=== PATIENT | female | born 1940 | race Caucasian/White ===

== ENCOUNTER → 2016-07-14 | Outpatient (CLI) | payer OTHER | LOC: BMCIMAGING 14:01 | PROVIDERS: ATTEND Internal Medicine | DX: M25.532 Pain in left wrist (principal) ==

== ENCOUNTER → 2016-08-08 | Outpatient (CLI) | payer OTHER | LOC: BMCIMAGING 10:44 | PROVIDERS: ATTEND Physician Assistant | DX: M25.532 Pain in left wrist (principal) ==

== ENCOUNTER → 2016-09-05 | Outpatient (CLI) | payer OTHER | LOC: FIMAGING 10:53 | DX: Z12.31 Encounter for screening mammogram for malignant neoplasm of breast (principal) | CPT/HCPCS: G0202 ==

== ENCOUNTER → 2016-09-28 | Outpatient (CLI) | payer OTHER | LOC: FIMAGING 09:01 | PROVIDERS: ATTEND Internal Medicine | DX: Z13.820 Encounter for screening for osteoporosis (principal) ==

== ENCOUNTER 2016-10-10 09:50 | Emergency (ER) | payer OTHER ==
--- NOTE | 2016-10-10 11:12 | EDPHY ---
H & P Time Seen by Provider: 10/10/16 10:15 HPI/ROS: CHIEF COMPLAINT: Right leg pain HISTORY OF PRESENT ILLNESS: 75-year-old woman is on hormone replacement but is worried about blood clot. She developed pain in her right leg below her knee on the lateral side over the last 24 hours. It is not associated with chest pain or shortness of breath. A little bit worse with palpation. Symptoms mild. No associated weakness or numbness in legs or known direct trauma. REVIEW OF SYSTEMS: Eye: no change in vision ENT: no sore throat Cardiac: no chest pain or syncope Pulmonary: no cough or SOB Abdomen: No abdominal pain. Musculoskeletal: As in HPI Skin: no rash or skin changes Neuro: no headache Constitutional: no fever : no urinary symptoms A comprehensive 10 point review of systems is otherwise negative aside from elements mentioned in the history of present illness. PAST MEDICAL HISTORY: Hypertension Social history: Nonsmoker, here with daughter General Appearance: Alert and conversant, cooperative. Eyes: No scleral icterus. ENT, Mouth: Normal mucous membranes. Respiratory: Normal respiratory effort, breath sounds equal, lungs are clear to auscultation. Cardiovascular: Regular rate and rhythm. Gastrointestinal: Abdomen is soft and non tender. Neurological: Alert and oriented x3. Normally conversant. Face symmetric, normal movement and sensation in all extremities. Skin: Warm and dry, no rashes. Musculoskeletal: Very mild tenderness on the proximal lateral surface of the lower leg. Compartments are soft. Knee joint is normal. No hip pain with axial loading or rotation. Normal right foot motor sensory and dorsalis pedis pulse. Normal range of motion of the knee. Psychiatric: Mildly anxious otherwise negative Emergency Department course/MDM: Ultrasound negative for DVT. I think that fracture or compartment syndrome or arterial occlusion or infection are all very unlikely. Patient is reassured, symptomatic treatment, outpatient follow-up. She will talk about her hormone replacement with her heat [employer]. Smoking Status: Never smoked Constitutional: Initial Vital Signs Heart Rate 66 10/10/16 11:24 Respiratory Rate 16 10/10/16 11:24 Blood Pressure 134/96 H 10/10/16 11:24 O2 Sat (%) 93 10/10/16 11:24 O2 Delivery Mode Room Air Allergies/Adverse Reactions: No Known Allergies Allergy (Verified 01/08/13 13:27) Home Medications: Medication Instructions Recorded Miscellaneous Medical Supply [NO 01/08/13 HOME MEDS] MDM/Departure - MDM Diagnostics: Ultrasound negative for DVT Imaging Results: Imaging Impressions Extremity Venous Study 10/10/16 12:20 Impression: No evidence of deep vein thrombosis. Findings discussed with Rj Morgan 10/10/2016 at 11:07. - Depart Disposition: Home, Routine, Self-Care Clinical Impression: Leg pain, right Condition: Good Instructions: Leg Pain (ED) Referrals: José Antonio Chawla MD [Primary Care Provider] - As per Instructions Zeinab Kenyon MD [Medical Doctor] - As per Instructions
[2016-10-10 11:25] VITALS: BP 134/96; PULSE 66; RESP 16; O2SAT 93
== END 2016-10-10 11:24 | disposition home or self-care (01) ==
DX: M79.604 Pain in right leg (principal); I10 Essential (primary) hypertension

== ENCOUNTER → 2017-09-06 | Outpatient (CLI) | payer OTHER | LOC: FIMAGING 09:30 | PROVIDERS: ATTEND Obstetrics & Gynecology | DX: Z12.31 Encounter for screening mammogram for malignant neoplasm of breast (principal) ==

== ENCOUNTER → 2018-09-07 | Outpatient (CLI) | payer OTHER | LOC: FIMAGING 10:27 | PROVIDERS: ATTEND Obstetrics & Gynecology | DX: Z12.31 Encounter for screening mammogram for malignant neoplasm of breast (principal) ==